=== PATIENT | male | born 1995 | race Hispanic/Latino ===

== ENCOUNTER 2018-03-29 11:56 | Emergency (ER) | payer SELFPAY ==
[~2018-03-29] VITALS: Ht 190.5 cm; Wt 74.8 kg
--- OUTSIDE RECORDS SUMMARY | 2018-03-29 11:58 | XMS REPORT ---
Author Author Lew Mckeon Organization [employer] Address Unknown Phone Unavailable Care Team Providers Care Truck Technician Name Role Phone Lew Mckeon CP Unavailable Allergies, Adverse Reactions, Alerts Substance Reaction Event Type Reglan Jittery Non Drug Allergy Problems Problem Type Condition Code Onset Dates Condition Status Assessment Epigastric pain R10.13 Active Assessment Pre-op evaluation Z01.818 Active Assessment Deviated nasal septum J34.2 Active Assessment Acute pharyngitis, unspecified etiology J02.9 Active Medications Medication Code System Code Instructions Start Date End Date Status Dosage Omeprazole [facility] 94504405367 40 MG Orally daily Active 1 capsule Ondansetron [facility] 06169070498 4 MG Orally every eight hours as needed Active 1 tablet Zithromax [facility] 16969614733 500 mg Orally Once a day November 06, 2017 November 09, 2017 Active 1 tablet Vital Signs Date/Time: November 06, 2017 BMI 22.19 Index Weight 173.3 lbs Height 74.1 in Temperature 97.4 F Cardiac Monitoring Heart Rate 74 /min Blood Pressure Diastolic 90 mm Hg Blood Pressure Systolic 143 mm Hg Results No Known Results Summary Purpose [employer] Submission
--- OUTSIDE RECORDS SUMMARY | 2018-03-29 11:58 | XMS REPORT | Continuity of Care Document ---
Author Author [facility] Interface Address Unknown Phone Unavailable Problems Problem Status Onset Date Classification Date Reported Comments Source Intractable vomiting with nausea, unspecified vomiting type Active Diagnosis 10/20/2017 2.16.840.1.077926.4.391.11.15777 Abdominal pain, unspecified abdominal location Active Diagnosis 10/20/2017 2.16.840.1.269527.4.391.11.23302 Epigastric pain Active Diagnosis 11/23/2017 2.16.840.1.786565.4.391.11.52748 Pre-op evaluation Active Diagnosis 11/23/2017 2.16.840.1.185198.4.391.11.39642 Deviated nasal septum Active Diagnosis 11/23/2017 2.16.840.1.340081.4.391.11.73693 Acute pharyngitis, unspecified etiology Active Diagnosis 11/23/2017 2.16.840.1.457019.4.391.11.44824 Abdominal pain, generalized Active Diagnosis 10/16/2017 2.16.840.1.588125.4.391.11.24185 BMI 23.0-23.9, adult Active Diagnosis 10/16/2017 2.16.840.1.708687.4.391.11.14277 Encounter for general adult medical examination with abnormal findings Active Diagnosis 10/16/2017 2.16.840.1.559444.4.391.11.65714 Viral warts, unspecified type Active Diagnosis 10/16/2017 2.16840.1.139561.4.391.11.34179 Medications Medication Details Route Status Patient Instructions Ordering Provider Order Date Source Zithromax 1 tablet Orally Active 500 mg Orally Once a day Mike 11/06/2017 2.16.840.1.182351.4.391.11.09221 Ondansetron 1 tablet Orally Active 4 MG Orally every eight hours as needed Mike 2.16840.1.250909.4.391.1181602 Omeprazole 1 capsule Orally Active 40 MG Orally daily Mike 2.16840.1.176576.4.391.11.99328 Allergies, Adverse Reactions, Alerts Substance Category Reaction Severity Reaction type Status Date Reported Comments Source Berrymaria isabel Adverse Reaction Jittery Adverse Reaction Active 11/06/2017 2.16.840.1.836594.4.391.11.45206 Immunizations Immunization Date Given Site Status Last Updated Comments Source Results Order Name Results Value Reference Range Date Interpretation Comments Source Vital Signs Vital Sign Value Date Comments Source Weight 173.3 11/06/2017 2.16.840.1.479439.4.391.11.85397 Height 74.1 11/06/2017 2.16.840.1.318311.4.391.11.63094 Temperature Oral (F) 97.4 F 11/06/2017 2.16.840.1.031590.4.391.11.54934 Heart Rate 74 11/06/2017 2.16.840.1.662610.4.391.11.12457 Diastolic (mm Hg) 90 11/06/2017 2.16.840.1.596323.4.391.11.52332 Systolic (mm Hg) 143 11/06/2017 2.16.840.1.759285.4.391.11.60944 Weight 180.9 10/13/2017 2.16.840.1.127117.4.391.11.64656 Height 74.1 10/13/2017 2.16.840.1.563280.4.391.11.72305 Temperature Oral (F) 98.0 F 10/13/2017 2.16.840.1.398311.4.391.11.64587 Heart Rate 59 10/13/2017 2.16.840.1.487098.4.391.11.47408 Diastolic (mm Hg) 55 10/13/2017 2.16.840.1.653631.4.391.11.59560 Systolic (mm Hg) 127 10/13/2017 2.16.840.1.968612.4.391.11.91936 Weight 186.6 10/07/2017 2.16.840.1.536675.4.391.11.09627 Height 74.1 10/07/2017 2.16.840.1.998432.4.391.11.02889 Temperature Oral (F) 98.0 F 10/07/2017 2.16.840.1.560126.4.391.11.90068 Heart Rate 65 10/07/2017 2.16.840.1.029328.4.391.11.69498 Diastolic (mm Hg) 75 10/07/2017 2.16.840.1.161100.4.391.11.88813 Systolic (mm Hg) 136 10/07/2017 2.16.840.1.595391.4.391.11.29063 Encounters Location Location Details Encounter Type Encounter Number Reason For Visit Attending Provider ADM Date DC Date Status Source Procedures Procedure Code Date Perfomer Comments Source
--- OUTSIDE RECORDS SUMMARY | 2018-03-29 11:58 | XMS REPORT | Clinical Summary ---
Author Author ROSEANNA [facility] Address Unknown Phone Unavailable Care Team Providers Care Strategy Intern Name Role Phone MikeAlesha dormanood PCP Allergies Comments Active Allergy Reactions Severity Noted Date Agitated Metoclopramide Hcl Other (See 12/16/2017 Comments) Medications End Date Status Medication Sig Dispensed Refills Start Date Active UNKNOWN Multiple 0 vitamins sold at [employer]-unsure of name . 12/16/2018 Active sodium chloride 0.65% 2 sprays by 15 mL 0 (DEEP SEA NASAL) 0.65 % Nasal route 4 8 nasal spray (four) times daily Use 4-6 times daily AND whenever nose feels dry.. 12/21/2017 cephalexin (KEFLEX) 500 Take 1 10 capsule 0 MG capsule capsule (500 8 mg total) by mouth 2 (two) times daily for 5 days. 12/26/2017 acetaminophen-codeine Take 1 tablet 30 tablet 0 (TYLENOL #3) 300-30 mg by mouth 8 per tablet every 4 (four) hours as needed for Pain for up to 10 days. Max Daily Amount: 6 tablets 12/21/2017 ketorolac (TORADOL) 10 mg Take 1 tablet 20 tablet 0 tablet (10 mg total) 8 by mouth every 6 (six) hours as needed for Pain for up to 5 days. Active Problems No known active problems Encounters Care Team Description Date Type Specialty Jose Linda MD 12/16/2017 Anesthesia Event Jessica Velasquez MD SEPTOPLASTY,NASAL 12/16/2017 Surgery Jessica Velasquez MD 12/16/2017 Hospital Encounter after 03/28/2017 Social History Date Tobacco Use Types Packs/Day Years Used Never Smoker Smokeless Tobacco: Never Used Alcohol Use Drinks/Week oz/Week Comments Yes 8 Cans of 4.8 socially; stopped 2 months ago beer Sex Assigned at Date Recorded Not on file Industry Job Start Date Occupation Not on file Not on file Not on file Travel End Travel History Travel Start No recent travel history available. Last Filed Vital Signs Time Taken Vital Sign Reading 12/16/2017 7:09 PM CDT Blood Pressure 126/75 12/16/2017 7:09 PM CDT Pulse 97 12/16/2017 7:09 PM CDT Temperature 37.1 C (98.7 F) 12/16/2017 7:09 PM CDT Respiratory Rate 17 12/16/2017 7:09 PM CDT Oxygen Saturation 97% - Inhaled Oxygen - Concentration 12/16/2017 12:20 PM CDT Weight 73.4 kg (161 lb 12.8 oz) 12/16/2017 12:20 PM CDT Height 190.5 cm (6' 3") 12/16/2017 12:20 PM CDT Body Mass Index 20.22 Plan of Treatment Not on file Procedures Comments Procedure Name Priority Date/Time Associated Diagnosis REPAIR,VESTIBULAR 12/16/2017 Deviated septum STENOSIS 2:00 PM CDT Hypertrophy, nasal, turbinate Nasal valve collapse TURBINECTOMY,NASAL 12/16/2017 Deviated septum 2:00 PM CDT Hypertrophy, nasal, turbinate Nasal valve collapse SEPTOPLASTY,NASAL 12/16/2017 Deviated septum 2:00 PM CDT Hypertrophy, nasal, turbinate Nasal valve collapse after 03/28/2017 Results Not on fileafter 03/28/2017 Insurance Payer Benefit Subscriber ID Type Phone Address Plan / Group Here On [employer]iz xxxxxxxxxx [employer] EXCHANGE
--- OUTSIDE RECORDS SUMMARY | 2018-03-29 11:58 | XMS REPORT ---
Author Author [facility] Address Unknown Phone Unavailable Care Team Providers Care Motor Carrier Inspector Name Role Phone Unavailable Unavailable Problems This patient has no known problems. Allergies, Adverse Reactions, Alerts This patient has no known allergies or adverse reactions. Medications This patient has no known medications.
--- OUTSIDE RECORDS SUMMARY | 2018-03-29 11:58 | XMS REPORT ---
Author Author Lew Mckeon Organization [employer] Address Unknown Phone Unavailable Care Team Providers Care Sugar Cane Planter Name Role Phone Lew Mckeon CP Unavailable Allergies, Adverse Reactions, Alerts Substance Reaction Event Type Reglan Jittery Non Drug Allergy Problems Problem Type Condition Code Onset Dates Condition Status Assessment Intractable vomiting with nausea, unspecified vomiting type R11.2 Active Assessment Abdominal pain, unspecified abdominal location R10.9 Active Medications Medication Code System Code Instructions Start Date End Date Status Dosage Ondansetron [facility] 85381215440 4 MG Orally every eight hours as needed Active 1 tablet Omeprazole ND 26654263998 40 MG Orally daily Active 1 capsule Vital Signs Date/Time: October 13, 2017 BMI 23.16 Index Weight 180.9 lbs Height 74.1 in Temperature 98.0 F Cardiac Monitoring Heart Rate 59 /min Blood Pressure Diastolic 55 mm Hg Blood Pressure Systolic 127 mm Hg Results No Known Results Summary Purpose [employer] Submission
--- OUTSIDE RECORDS SUMMARY | 2018-03-29 11:58 | XMS REPORT ---
Author Lew Roman Organization [employer] Address Unknown Phone Unavailable Care Team Providers Care Lcac Radar Operator/Navigator Name Role Phone Lew Mckeon CP Unavailable Allergies, Adverse Reactions, Alerts Substance Reaction Event Type Reglan Jittery Non Drug Allergy Problems Problem Type Condition Code Onset Dates Condition Status Assessment Abdominal pain, generalized R10.84 Active Assessment BMI 23.0-23.9, adult Z68.23 Active Assessment Encounter for general adult medical examination with abnormal findings Z00.01 Active Assessment Viral warts, unspecified type B07.9 Active Medications No Known Medications Vital Signs Date/Time: October 07, 2017 BMI 23.89 Index Weight 186.6 lbs Height 74.1 in Temperature 98.0 F Cardiac Monitoring Heart Rate 65 /min Blood Pressure Diastolic 75 mm Hg Blood Pressure Systolic 136 mm Hg Results Name Result Date Reference Range Unit Abnormality Flag CMP (Comprehensive Metabolic Panel) ----Albumin Lvl 4.5 33544291 3.5-5.0 g/dL ----Total Protein 7.6 33391205 6.4-8.4 g/dL ----Chloride Lvl 104 03030425 95-109 mEq/L ----eGFR 126 01536826 mL/min/1.73m2 ----CO2 27 75866150 24-32 mEq/L ----Alk Phos 100 08874459 39-136 U/L ----AGAP 14.1 50451262 10.0-20.0 mEq/L ----AST 19 08890713 0-37 U/L ----Glucose Lvl 86 71582364 70-99 mg/dL ----ALT 25 86522380 0-65 U/L ----Creatinine Lvl 0.80 33956423 0.50-1.40 mg/dL ----Calcium Lvl 9.0 84547883 8.5-10.5 mg/dL ----BUN 9 52844243 7-22 mg/dL ----Sodium Lvl 141 20171007 135-145 mEq/L ----B/C Ratio 11 20171007 6-25 ----A/G Ratio 1.5 20171007 0.7-1.6 ----Potassium Lvl 4.1 20171007 3.5-5.1 mEq/L ----Globulin 3.1 20171007 2.7-4.2 g/dL Folate Level ----Folate Lvl 16.0 13407017 >=3.0 ng/mL TSH (Thyroid Stimulating Hormone) ----TSH 1.330 20171007 0.360-3.740 uIU/mL Lipid Panel w/calculated LDL ----LDL (Calculated) 132 47861207 <=99 mg/dL H ----CHD Risk 4.68 20171007 4.00-7.30 ----Trig 93 34205790 <=149 mg/dL ----HDL 41 99489820 >=61 mg/dL L ----Chol 192 09505300 <=199 mg/dL Celiac Disease Panel w/Reflex Endomysial Antibody Titer ----Gliadin (Deamidated Peptide)IgG Ab <0.4 67063426 <=14.9 U/mL ----Tissue Transglutaminase (tTG) IgA <0.5 40404077 <=14.9 U/mL ----IgA Lvl 348.0 27922446 68.0-378.0 mg/dL ----Gliadin (Deamidated Peptide)IgA Ab <0.2 41795173 <=14.9 U/mL ----Tissue Transglutaminase (tTG) IgG <0.8 10264457 <=14.9 U/mL Helicobacter pylori, IgA ----H. pylori, IgA Abs <9.0 20171013 Vitamin D 25-Hydroxy ----Vitamin D, 25-OH, Total 20.7 20171007 30.0-100.0 ng/mL L Vitamin B12 Level ----Vitamin B12 Lvl 534 20171007 254-1320 pg/mL Hb A1c Hemoglobin ----Hgb A1C 5.3 20171007 <=5.6 % CBC w/ Auto Diff and Platelet ----Hgb 14.1 20171007 14.0-18.0 g/dL ----RBC 4.94 08168584 4.70-6.10 M/CMM ----MCV 86.2 20171007 80.0-94.0 fl ----Hct 42.6 20171007 42.0-54.0 % ----MCHC 33.0 20171007 32.0-36.0 g/dL ----MCH 28.5 00491781 27.0-31.0 pg ----Platelet 385 78718761 133-450 K/CMM ----RDW 12.6 04281470 11.5-14.5 % ----MPV 8.8 07277290 7.4-10.4 fl ----WBC 5.5 13294691 3.7-10.4 K/CMM Summary Purpose [employer] Submission
== END 2018-03-29 13:10 | disposition left against medical advice (07) ==
LOC: ER 11:56
DX: R09.89 Other specified symptoms and signs involving the circulatory and respiratory systems (principal)